=== PATIENT | female | born 1975 | race Caucasian/White ===

== ENCOUNTER 2016-06-26 21:22 | Emergency (ER) | payer OTHER ==
--- NOTE | ~2016-06-26 | CT71 ---
[facility] A Service of [facility] / [facility] RADIOLOGY TEXT RESULTS PATIENT: FAZAL VASQUEZ LOCATION: [facility] : 79 UNIT #: [id number] AGE: [address]: Nguyễn Alejandro MD SEX: F ORDER DR: [id number] [address] [place], [place] [address] [id number] MR#: [id number] #: [id number] NAME: FAZAL VASQUEZ : 1975 SEX: F STUDY DATE/TIME: 06/26/2016 22:52 UNIT: [facility] ROOM: STUDY DESCRIPTION: CT Head Wo Contrast Attending Physician: Flo Alejandro M.D. Ordering Physician: Flo Alejandro M.D. Primary Care Physician: [facility] MEDICAL IMAGING REPORT This report is preliminary unless electronic signature is present EXAM CT head without IV contrast. COMPARISON None INDICATION 41-year-old female with left ear, cheek, lip and nose numbness for [address] exam was performed with one or more of the following radiation dose reduction techniques: automatic exposure control, adjustment of mA and/or kV according to patient size, and iterative reconstruction. FINDINGS There is minimal mucosal thickening of the anterior ethmoid air cells. Visualized paranasal sinuses, mastoid air cells, and middle ears are otherwise well aerated. No acute fractures or suspicious osseous lesions. No mass effect. No abnormal extraaxial fluid collection. Normal cerebral volume. No acute intracranial hemorrhage or evidence of acute ischemia. IMPRESSION No acute intracranial abnormality. Minimal mucosal thickening of the ethmoid air cells. No air-fluid levels of the paranasal sinuses. Dictated by... Jeromy Fields M.D. THIS IS AN ELECTRONICALLY VERIFIED REPORT Jeromy Fields M.D. at 06/29/2016 8:19 AM [facility]/tmw [facility] A Service of [facility] & [facility] RADIOLOGY TEXT RESULTS PATIENT: FAZAL VASQUEZ LOCATION: [facility] : 79 UNIT #: [id number] AGE: [address]: Nguyễn Alejandro MD SEX: F ORDER DR: TD: 06/27/2016 09:09 JOB #: [id number] MEDICAL IMAGING REPORT COPY
== END 2016-06-27 00:07 | disposition home or self-care (01) ==
LOC: CED 21:22
DX: R20.9 Unspecified disturbances of skin sensation (principal); F17.210 Nicotine dependence, cigarettes, uncomplicated
CPT/HCPCS: 70450; 84703; 99283